=== PATIENT | female | born 1950 | race Caucasian/White ===

== ENCOUNTER → 2018-05-15 | Outpatient (CLI) | payer OTHER ==
[~2018-05-15] MED LIST: ASPIRIN325 PO; BIOTIN2500 MCG PO; CALCIUM 600 +1 EAC1 PO; CENTRUM SILVER1 EAC4 PO; COLACE100 MG PO; FISH OIL 1,001000 M2 PO; MAXZIDE-25 MG1 EACH PO; MOBIC15 MG PO; NEURONTIN 300300 M1 PO; TRAMADOL 50 MG50 MG PO; TRIAMTERENE/HCT1 CA1 PO; TYLENOL325 MG PO; XARELTO10 MG PO
== END ==
LOC: M.RAD 09:50
DX: Z12.31 Encounter for screening mammogram for malignant neoplasm of breast (principal)

== ENCOUNTER → 2019-05-29 | Outpatient (CLI) | payer OTHER | LOC: M.RAD 09:40 | DX: Z12.31 Encounter for screening mammogram for malignant neoplasm of breast (principal) ==

== ENCOUNTER → 2019-08-19 | Outpatient (CLI) | payer OTHER | LOC: M.RAD 14:22 | DX: M81.0 Age-related osteoporosis without current pathological fracture (principal); N91.2 Amenorrhea, unspecified; Z78.0 Asymptomatic menopausal state ==

== ENCOUNTER → 2020-05-25 | Outpatient (CLI) | payer OTHER | LOC: M.RAD 10:41 | PROVIDERS: ATTEND Family Medicine | DX: Z12.31 Encounter for screening mammogram for malignant neoplasm of breast (principal) ==

== ENCOUNTER → 2021-05-25 | Outpatient (CLI) | payer OTHER | LOC: M.RAD 09:40 | PROVIDERS: ATTEND Family Medicine | DX: Z12.31 Encounter for screening mammogram for malignant neoplasm of breast (principal) ==